=== PATIENT | male | born 1950 | race Caucasian/White ===

== ENCOUNTER → 2016-12-16 | Outpatient (CLI) | payer MEDICARE, OTHER ==
[~2016-12-16] VITALS: Ht 167.6 cm; Wt 83.9 kg
[~2016-12-16] MED LIST: ALEV220C2 PO; ASPI1TAB PO; COQ-30CA2 PO; DIVA125C5 PO; LEVO25TA5 PO; OMEG100011 PO; PROBCAP4 PO; PROP80TA PO; PROPOFOL 200 MG/20 ML VIAL As Ordered ONE; SIMV40TA2 PO; VITAPOW41 XX; VYTO10TA41 PO; ZETI10TA2 PO; imitrex OR
--- NOTE | 2016-12-16 12:04 | ROOR ---
Patient Name: King Meyer Procedure Date: 12/16/2016 11:35 AM Date of : 1950 Age: 66 Room: [facility] Gender: Male Note Status: Finalized Procedure: Colonoscopy Indications: High risk colon cancer surveillance: Personal history of colonic polyps, Last colonoscopy: November 2013 Providers: Jonatan BAUMAN MD Referring MD: MARINE HAWTHORNE MD Requesting Provider: Medicines: Monitored Anesthesia Care Complications: No immediate complications. Procedure: Pre-Anesthesia Assessment: - The heart rate, respiratory rate, oxygen saturations, blood pressure, adequacy of pulmonary ventilation, and response to care were monitored throughout the procedure. The Colonoscope was introduced through the anus and advanced to 8 cm into the ileum. The colonoscopy was performed without difficulty. The patient tolerated the procedure well. The quality of the bowel preparation was good. Findings: The perianal and digital rectal examinations were normal. (Exam: Complete, Prep: Good or Excellent.) A 6 mm polyp was found in the splenic flexure. The polyp was sessile. The polyp was removed with a cold snare. Resection and retrieval were complete. Two sessile polyps were found in the ascending colon. The polyps were diminutive in size. These polyps were removed with a cold snare. Resection and retrieval were complete. Two erosions were found in the ascending colon. Biopsies were taken with a cold forceps for histology. Multiple medium-mouthed diverticula were found in the sigmoid colon. Small Internal Hemorrhoids. The exam was otherwise without abnormality. Impression: - One 6 mm polyp at the splenic flexure, removed with a cold snare. Resected and retrieved. - Two diminutive polyps in the ascending colon, removed with a cold snare. Resected and retrieved. - Two shallow erosions in the ascending colon (likely prep artefact). Biopsied. - Moderate diverticulosis in the sigmoid colon. - Small Internal Hemorrhoids. - The examination of the colon was otherwise normal. - The terminal ileum is normal in appearance. Recommendation: - Repeat colonoscopy in 3 years for adenoma surveillance. - Telephone endoscopist for pathology results in 2 weeks. Jonatan Bauman MD Jonatan BAUMAN MD 12/16/2016 12:04:29 PM This report has been signed electronically. Number of Addenda: 0 Note Initiated On: 12/16/2016 11:35 AM Estimated Blood Loss: Estimated blood loss: none.
[2016-12-16 12:30] VITALS: BP 148/89
== END ==
LOC: M OPP 09:48
PROVIDERS: ATTEND Internal Medicine Gastroenterology
DX: Z12.11 Encounter for screening for malignant neoplasm of colon (principal); Z86.010 Personal history of colon polyps; D12.3 Benign neoplasm of transverse colon; D12.2 Benign neoplasm of ascending colon; K63.3 Ulcer of intestine; K57.30 Diverticulosis of large intestine without perforation or abscess without bleeding; K64.8 Other hemorrhoids; I10 Essential (primary) hypertension; M19.90 Unspecified osteoarthritis, unspecified site; F40.240 Claustrophobia; Z79.82 Long term (current) use of aspirin; Z79.899 Other long term (current) drug therapy; Z88.8 Allergy status to other drugs, medicaments and biological substances

== ENCOUNTER → 2017-01-18 | Outpatient (CLI) | payer MEDICARE, OTHER ==
[~2017-01-18] VITALS: Ht 167.6 cm; Wt 83.9 kg
[~2017-01-18] MED LIST changes: +INDE80CA PO; +LIDOCAINE 2% INJ 100 MG/5 ML SDV (FOR ANES.) As Ordered ONE; +NS 1,000 ML IV SCH; +VYTO10TA2 PO
--- NOTE | 2017-01-18 09:33 | ROOR ---
Patient Name: King Meyer Procedure Date: 01/18/2017 9:13 AM Date of : 1950 Age: 66 Room: [facility] Gender: Male Note Status: Finalized Procedure: Upper GI endoscopy Indications: Heartburn, Suspected esophageal reflux Providers: Jonatan BAUMAN MD Referring MD: MARINE HAWTHORNE MD, Jordy Harris MD Requesting Provider: Medicines: Monitored Anesthesia Care Complications: No immediate complications. Procedure: Pre-Anesthesia Assessment: - The heart rate, respiratory rate, oxygen saturations, blood pressure, adequacy of pulmonary ventilation, and response to care were monitored throughout the procedure. The Endoscope was introduced through the mouth, and advanced to the second part of duodenum. The upper GI endoscopy was accomplished without difficulty. The patient tolerated the procedure well. Findings: Moderately severe esophagitis was found in the lower third of the esophagus. Biopsies were taken with a cold forceps for histology. The exam was otherwise without abnormality. Impression: - Moderately severe reflux esophagitis. Biopsied. - The examination was otherwise normal. Recommendation: - Use Prilosec (omeprazole) 40 mg PO daily. - Follow an antireflux regimen. - (the script was sent to your pharmacy on file ([place]) Jonatan Bauman MD Jonatan BAUMAN MD 01/18/2017 9:32:55 AM This report has been signed electronically. Number of Addenda: 0 Note Initiated On: 01/18/2017 9:13 AM Estimated Blood Loss: Estimated blood loss: none.
[2017-01-18 10:03] VITALS: BP 127/79
== END | disposition home or self-care (01) ==
LOC: M OPP 08:19
PROVIDERS: ATTEND Internal Medicine Gastroenterology
DX: R12 Heartburn (principal); K21.0 Gastro-esophageal reflux disease with esophagitis; I10 Essential (primary) hypertension; E03.9 Hypothyroidism, unspecified; M19.90 Unspecified osteoarthritis, unspecified site; M54.9 Dorsalgia, unspecified; G43.909 Migraine, unspecified, not intractable, without status migrainosus; Z88.8 Allergy status to other drugs, medicaments and biological substances; Z79.82 Long term (current) use of aspirin; Z79.899 Other long term (current) drug therapy; F40.240 Claustrophobia

== ENCOUNTER → 2018-01-24 | Outpatient (CLI) | payer MEDICARE, OTHER | LOC: M RAD 12:22 | DX: M50.21 Other cervical disc displacement, high cervical region (principal); M50.221 Other cervical disc displacement at C4-C5 level; M50.222 Other cervical disc displacement at C5-C6 level; M25.78 Osteophyte, vertebrae; M48.02 Spinal stenosis, cervical region; M12.88 Other specific arthropathies, not elsewhere classified, other specified site | CPT/HCPCS: 72040 ==

== ENCOUNTER → 2018-01-24 | Outpatient (CLI) | payer MEDICARE, OTHER | LOC: M RAD 12:16 | DX: M50.21 Other cervical disc displacement, high cervical region (principal); M50.221 Other cervical disc displacement at C4-C5 level; M50.222 Other cervical disc displacement at C5-C6 level; M25.78 Osteophyte, vertebrae; M48.02 Spinal stenosis, cervical region ==

== ENCOUNTER → 2018-09-12 | Outpatient (CLI) | payer MEDICARE, OTHER ==
[~2018-09-12] MED LIST changes: +DIVA1CAP PO; -INDE80CA PO; +INDE80CA9 PO; -LIDOCAINE 2% INJ 100 MG/5 ML SDV (FOR ANES.) As Ordered ONE; -NS 1,000 ML IV SCH; -PROPOFOL 200 MG/20 ML VIAL As Ordered ONE; -VYTO10TA2 PO; +VYTO10TA25 PO; -ZETI10TA2 PO; +ZETI10TA30 PO
[2018-09-12 14:33] LABS: BLOOD UREA NITROGEN 12 MG/DL (7-18); GLOMERULAR FILTRATION RATE > 60.0 (>42)
== END ==
LOC: M LAB 12:54
PROVIDERS: ATTEND Neurological Surgery
DX: M47.12 Other spondylosis with myelopathy, cervical region (principal); M50.30 Other cervical disc degeneration, unspecified cervical region

== ENCOUNTER → 2020-02-08 | Outpatient (CLI) | payer MEDICARE, OTHER ==
[~2020-02-08] MED LIST changes: -ASPI1TAB PO; +ASPI81TA26 PO; +MYRB50TA PO; +OMEP-221 PO; -SIMV40TA2 PO; +SIMV40TA20 PO; +TAMS1CAP17 PO; +TIZA2TAB6 PO; +ZETI10TA16 PO; -ZETI10TA30 PO
== END ==
LOC: M LABSMTC 11:12
PROVIDERS: ATTEND Anesthesiology
DX: Z01.818 Encounter for other preprocedural examination (principal); Z11.59 Encounter for screening for other viral diseases
CPT/HCPCS: C9803; U0003

== ENCOUNTER 2020-02-11 09:10 | Day surgery (SDC) | payer MEDICARE, OTHER ==
[~2020-02-11] VITALS: Ht 167.6 cm; Wt 78.6 kg
[~2020-02-11 09:10] MED LIST changes: +NS 1,000 ML IV ONE
[2020-02-11] MEDS ORDERED: fentaNYL 100 MCG/2 ML INJECTION (J3010) As Ordered ONE (09:33)
[2020-02-11] MEDS ORDERED: propofoL 200 MG/20 ML VIAL As Ordered ONE ×2 (10:30→10:31)
[2020-02-11] MEDS ORDERED: LIDOCAINE 2% 100MG/5ML SDV (FOR ANES.) As Ordered ONE (10:30)
--- NOTE | 2020-02-11 11:15 | ROOR ---
Patient Name: King Meyer Procedure Date: 02/11/2020 10:53 AM Date of : 1950 Age: 69 Room: [facility] Gender: Male Note Status: Finalized Procedure: Upper GI endoscopy Indications: Surveillance for malignancy due to personal history of Barron's esophagus Providers: Jonatan BAUMAN MD Referring MD: LEODAN BOYLE MD Requesting Provider: Medicines: Monitored Anesthesia Care Complications: No immediate complications. Procedure: Pre-Anesthesia Assessment: - The heart rate, respiratory rate, oxygen saturations, blood pressure, adequacy of pulmonary ventilation, and response to care were monitored throughout the procedure. The Endoscope was introduced through the mouth, and advanced to the second part of duodenum. The upper GI endoscopy was accomplished without difficulty. The patient tolerated the procedure well. Findings: The Z-line was variable and was found 40 cm from the incisors. This was biopsied with a cold forceps for evaluation to rule out Barron's Esophagus. The examined esophagus was normal. The entire examined stomach was normal. The examined duodenum was normal. Impression: - Normal esophagus. Z-line variable, 40 cm from the incisors. Biopsied. - Normal stomach. - Normal examined duodenum. Recommendation: - Continue present medications. - Repeat upper endoscopy in 3 years for surveillance of Barron's esophagus. Jonatan Bauman MD Jonatan BAUMAN MD 02/11/2020 11:14:26 AM Electronically signed by Jonatan BAUMAN MD Number of Addenda: 0 Note Initiated On: 02/11/2020 10:53 AM Estimated Blood Loss: Estimated blood loss: none.
--- NOTE | 2020-02-11 11:43 | ROOR ---
Patient Name: King Meyer Procedure Date: 02/11/2020 10:53 AM Date of : 1950 Age: 69 Room: [facility] Gender: Male Note Status: Finalized Procedure: Colonoscopy Indications: High risk colon cancer surveillance: Personal history of colonic polyps Providers: Jonatan BAUMAN MD Referring MD: LEODAN BOYLE MD Requesting Provider: Medicines: Monitored Anesthesia Care Complications: No immediate complications. Procedure: Pre-Anesthesia Assessment: - The heart rate, respiratory rate, oxygen saturations, blood pressure, adequacy of pulmonary ventilation, and response to care were monitored throughout the procedure. The Colonoscope was introduced through the anus and advanced to the cecum, identified by appendiceal orifice and ileocecal valve. The colonoscopy was performed without difficulty. The patient tolerated the procedure well. The quality of the bowel preparation was good. Findings: The perianal and digital rectal examinations were normal. Two sessile polyps were found in the ascending colon. The polyps were 5 mm in size. These polyps were removed with a cold snare. Resection and retrieval were complete. Two sessile polyps were found in the splenic flexure. The polyps were 5 mm in size. These polyps were removed with a cold snare. Resection and retrieval were complete. Two pedunculated polyps were found in the descending colon. The polyps were 6 to 9 mm in size. These polyps were removed with a hot snare. Resection and retrieval were complete. To prevent bleeding after the polypectomy, two hemostatic clips were successfully placed. There was no bleeding at the end of the procedure. Multiple small and large-mouthed diverticula were found in the left colon and right colon. Internal hemorrhoids were found during retroflexion. The hemorrhoids were medium-sized. Impression: - Two 5 mm polyps in the ascending colon, removed with a cold snare. Resected and retrieved. - Two 5 mm polyps at the splenic flexure, removed with a cold snare. Resected and retrieved. - Two 6 to 9 mm polyps in the descending colon, removed with a hot snare. Resected and retrieved. Clips were placed. - Diverticulosis in the left colon and in the right colon. - Internal hemorrhoids. Recommendation: - No ibuprofen, naproxen, or other non-steroidal anti-inflammatory drugs for 10 days after polyp removal. - Repeat colonoscopy in 3 years for surveillance. Jonatan Bauman MD Jonatan BAUMAN MD 02/11/2020 11:42:59 AM Electronically signed by Jonatan BAUMAN MD Number of Addenda: 0 Note Initiated On: 02/11/2020 10:53 AM Estimated Blood Loss: Estimated blood loss: none.
[2020-02-11 12:00] VITALS: BP 155/93
== END 2020-02-11 12:17 | disposition home or self-care (01) ==
LOC: M OPP 09:10
PROVIDERS: ATTEND Internal Medicine Gastroenterology
DX: Z12.11 Encounter for screening for malignant neoplasm of colon (principal); Z86.010 Personal history of colon polyps; D12.2 Benign neoplasm of ascending colon; D12.3 Benign neoplasm of transverse colon; D12.4 Benign neoplasm of descending colon; K64.8 Other hemorrhoids; K57.30 Diverticulosis of large intestine without perforation or abscess without bleeding; K22.8 Other specified diseases of esophagus; K22.70 Barrett's esophagus without dysplasia; Z79.899 Other long term (current) drug therapy; Z88.5 Allergy status to narcotic agent; Z87.891 Personal history of nicotine dependence
CPT/HCPCS: 43239; 45385; 88305; J3010

== ENCOUNTER → 2020-10-15 | Outpatient (CLI) | payer MEDICARE, OTHER ==
[~2020-10-15] MED LIST changes: -NS 1,000 ML IV ONE; +TIZA1TAB12 PO; -TIZA2TAB6 PO
--- NOTE | 2020-10-15 15:31 | REP ---
INDICATION: GALLSTONES, CHOLYCYSTITIS. COMPARISON: None. TECHNIQUE/RADIOTRACER AND DOSE: 6.6 mCi of Technetium-99m mebrofenin was injected and sequential anterior images are acquired. 65 minutes after the mebrofenin injection, the patient consumed 8 ounces Ensure and an additional 60 minutes of imaging was acquired. Regions of interest are plotted around the gallbladder. FINDINGS: The initial hepatocellular parenchymal uptake phase is normal and homogeneous. Intra- and extra-hepatic bile ducts are labeled by the 10-minute image. The gallbladder is first labeled on the 15-minute image. There is normal washout from the liver parenchyma into the gallbladder and small intestine on subsequent images. The gallbladder ejection fraction is 27%. Values greater than 35% are considered normal with this technique. IMPRESSION: Normal hepatobiliary scan and reduced gallbladder ejection fraction. <Electronically signed by Dakota Munoz > 10/15/20 [id number]
== END ==
LOC: M RAD 07:49
PROVIDERS: ATTEND Preventive Medicine Undersea and Hyperbaric Medicine
DX: K80.20 Calculus of gallbladder without cholecystitis without obstruction (principal)
CPT/HCPCS: 78227; A9537

== ENCOUNTER → 2021-06-08 | Outpatient (REF) | payer MEDICARE, OTHER ==
[2021-06-08 16:37] LABS: BASO % 0.8 % (0.0-1.0); EOS # 0.2 10^3/uL (0.0-0.5); EOS % 3.8 % (0.0-3.0); HEMATOCRIT 39.7 % (42.0-52.0); HEMOGLOBIN 12.6 g/dl (13.5-17.5); LYMPH % 19.3 % (24.0-44.0); MEAN CORPUSCULAR HEMOGLOBIN 30.3 pg (27.0-33.0); MEAN CORPUSCULAR HGB CONC 31.7 g/dl (32.0-36.5); MEAN CORPUSCULAR VOLUME 95.4 fl (80.0-96.0); MONO % 19.1 % (2.0-8.0); NEUTROPHILS % 56.4 % (36.0-66.0); PLATELET COUNT, AUTOMATED 194 10^3/uL (150-450); RED BLOOD COUNT 4.16 10^6/uL (4.30-6.10); WHITE BLOOD COUNT 5.3 10^3/uL (4.0-10.0)
[2021-06-08 17:13] LABS: ERYTHROCYTE SEDIMENTATION RATE 28 mm/hr (0-20)
[2021-06-08 17:22] LABS: ALBUMIN 3.3 GM/DL (3.2-5.2); ALT/SGPT 20 U/L (12-78); BILIRUBIN,TOTAL 0.3 MG/DL (0.2-1.0); BLOOD UREA NITROGEN 13 MG/DL (7-18); C REACTIVE PROTEIN QUANTITATIV 0.34 MG/DL (0.00-0.30); CALCIUM LEVEL 9.2 MG/DL (8.8-10.2); CARBON DIOXIDE LEVEL 27 MEQ/L (21-32); CHLORIDE LEVEL 106 MEQ/L (98-107); CREATININE FOR GFR 0.99 MG/DL (0.70-1.30); GLOMERULAR FILTRATION RATE > 60.0 (>42); GLUCOSE, FASTING 88 MG/DL (70-100); POTASSIUM SERUM 4.3 MEQ/L (3.5-5.1); SODIUM LEVEL 141 MEQ/L (136-145); TOTAL PROTEIN 7.1 GM/DL (6.4-8.2); VANCOMYCIN LEVEL TROUGH 9.9 UG/ML (10.0-20.0)
== END ==
LOC: M SHH 16:10
DX: Z00.00 Encounter for general adult medical examination without abnormal findings (principal)

== ENCOUNTER 2023-03-17 11:16 | Day surgery (SDC) | payer MEDICARE, OTHER ==
[~2023-03-17] VITALS: Ht 167.6 cm; Wt 80.3 kg
[~2023-03-17 11:16] MED LIST changes: +ATOR40TA75 PO; +DIVA125C6 PO; -DIVA1CAP PO; +ELIQ5TAB PO; +EZET-20 PO; +NS 1,000 ML IV ONE; -OMEP-221 PO; +OMEP40CA5 PO; +OXYB10TA23 PO; -VYTO10TA25 PO
[2023-03-17] MEDS ORDERED: LIDOCAINE 2% 100MG/5ML SDV (FOR ANES.) As Ordered ONE (11:54)
[2023-03-17] MEDS ORDERED: propofoL 200 MG/20 ML VIAL As Ordered ONE ×2 (11:54→14:43)
[2023-03-17 15:18] VITALS: TEMP 97
[2023-03-17 15:28] VITALS: BP 176/80; O2SAT 96
== END 2023-03-17 16:07 | disposition home or self-care (01) ==
LOC: M OPP 11:16
PROVIDERS: ATTEND Internal Medicine Gastroenterology
DX: Z12.11 Encounter for screening for malignant neoplasm of colon (principal); Z86.010 Personal history of colon polyps; D12.0 Benign neoplasm of cecum; D12.3 Benign neoplasm of transverse colon; D12.5 Benign neoplasm of sigmoid colon; K57.30 Diverticulosis of large intestine without perforation or abscess without bleeding; K64.8 Other hemorrhoids; K22.89 Other specified disease of esophagus; K22.70 Barrett's esophagus without dysplasia; Z79.01 Long term (current) use of anticoagulants; Z79.02 Long term (current) use of antithrombotics/antiplatelets; Z79.899 Other long term (current) drug therapy

== ENCOUNTER → 2024-12-20 | Outpatient (REF) ==
[~2024-12-20] MED LIST changes: +EZET10TA58 PO; -NS 1,000 ML IV ONE; -ZETI10TA16 PO
== END ==
LOC: M PLAIMG 13:32
PROVIDERS: ATTEND Internal Medicine
DX: R52 Pain, unspecified (principal)